=== PATIENT | female | born 1970 | race Caucasian/White ===

== ENCOUNTER → 2018-01-02 | Outpatient (CLI) | payer MEDICARE, MEDICAID ==
[~2018-01-02] MED LIST: CLEOCIN PH600 MG/50 IV; COREG 6.256.25 MG/TA PO; DURAMORPH1 MG/ML IV; GLUCOPHAGE1000 MG PO; LANTUS100 U/ML SC; LASIX 40MG TABL40 MG PO; LOVENOX 4040 MG/0.4 SQ; NORCO 325 MG-7.1 TAB PO; NOVLOG SC; ZESTRIL 10MG10 MG PO
== END ==
LOC: MC.RAD 11:24
DX: Z12.31 Encounter for screening mammogram for malignant neoplasm of breast (principal)

== ENCOUNTER 2019-03-31 12:52 | Inpatient (IN) | payer MEDICARE, MEDICAID ==
[~2019-03-31] VITALS: Ht 172.7 cm; Wt 92.8 kg
[~2019-03-31 12:52] MED LIST changes: +COREG 3.123.125 MG/T PO; -COREG 6.256.25 MG/TA PO
[2019-03-31 14:33] VITALS: BP 108/67; PULSE 88; TEMP 97.9
[2019-03-31] MEDS ORDERED: NEURONTIN600 MG/TAB PO (14:38)
[2019-03-31] MEDS ORDERED: XIGDUO5/1000 PO (14:38)
[2019-03-31] MEDS ORDERED: PRAVACHOL 40MG40 MG PO (14:39)
[2019-03-31] MEDS ORDERED: ZOLOFT 100MG100 MG PO (14:39)
[2019-03-31] MEDS ORDERED: GLUCOTROL10 MG PO (14:40)
[2019-03-31] MEDS ORDERED: ASPIRIN 81M81 MG/TA2 PO (14:40)
[2019-03-31] MEDS ORDERED: TRULICITY1.5 MG/0.5 SQ (14:41)
[2019-03-31] MEDS ORDERED: ZANTAC 150MG T150 MG PO (14:42)
[2019-03-31] MEDS ORDERED: TYLENOL PM EXTR1 TA1 PO (14:42)
--- NOTE | 2019-03-31 16:17 | NUR ---
Vancomycin Initial Dosing Pharmacy Note Ordering provider: Carter Landeros MD Indication/duration: Right foot ulcer w/cellulits, sepsis, s/p septic shock 10d Relevant comorbidities: LABS: SCR 0.6./CRCL~110/88KG Recommendation: 1.5GM Loading dose: 1.5 grams Maintenance dose: 1.5 grams every 12 hours Trough goal: POSSIBLE OSTEO 15-20
--- NOTE | 2019-03-31 19:58 | NUR ---
Sitting up in bed. Talkative and tearful. Patient rates pain in right foot 2/0 and describes the pain as a nerve pain sensation. 2+ edema noted to right lower extremity. Dressing to right foot CDI. IV site in left forearm infiltrated. Removed IV at this time with catheter intact. IV in right forearm patent with antibiotics infusing at this time. Patient denies further needs at this time.
[2019-03-31 20:05] VITALS: BP 115/66; PULSE 100; TEMP 98.7
--- NOTE | 2019-03-31 20:05 | NUR ---
Patients admission paperwork has been completed. She had all her tests that were ordered completed. Ortho has seen patient, no orders for surgery or anything yet. Patient is NPO after midnight and is aware of this. Dressing to foot has been changed twice since admission. She had a large blister to the bottom of her foot, that is open and draining. She has a 2 inch black spot to the top her foot that is red, draining and the skin is pushed back. There are 3 small black spots to the right side of her right foot. Her right pinky toe is black and draining brown drainage, wound culture sent as ordered. Dressing is C/D/I at this time. Denies pain to her right foot. She has dime sized purple blister/spot to her right inman. She has reddness from her right mid-shing to her foot. No other changes at this time. Her home medications are being sent home with her friend. Call light within reach.
--- NOTE | 2019-03-31 23:10 | NUR ---
Rechecked blood glucose. Accu check is 289 at this time. Contacted Ms. Smith, hospitalist, and we will recheck blood sugar level in two hours. Patient updated.
--- NOTE | 2019-04-01 00:17 | NUR ---
Lying in bed with eyes closed. Opens eyes when enter room. Patient takes one last sip of water as she is aware that she is to be NPO starting at this time. Water removed. Patient denies further needs at this time.
[2019-04-01 01:00] VITALS: BP 103/58; PULSE 98; TEMP 99.6
--- NOTE | 2019-04-01 01:04 | NUR ---
Accu check 268. Ms. Smith informed. Will administer Novolog 8 units SQ at this time per Ms. Smith order.
--- NOTE | 2019-04-01 03:50 | NUR ---
Blood glucose 161, administered Novolog 4 units per SS in left upper arm. Assisted patient up to bedside commode to urinate. Patient urinates clear yellow urine without difficulty. Assisted patient back into the bed. Patient remains NPO. Provided mouth swabs per patient request. Patient denies further needs at this time.
[2019-04-01 04:05] VITALS: BP 115/63; PULSE 97; TEMP 99.4
[2019-04-01 06:04] LABS: MEAN CELL VOLUME 86 fl (80.0-100.0); MEAN CORPUSCULAR HGB CONC 31 g/dl (33.0-37.0); MEAN PLATELET VOLUME 8.5 fl (7.4-10.4); PLATELET COUNT 401 K/mm3 (130-400); RED BLOOD COUNT 3.17 M/mm3 (4.10-5.30); REDCELL DISTRIBUTION WIDTH-CV 15.1 % (11.5-14.5)
[2019-04-01 06:12] LABS: HEMATOCRIT 27.1 % (37.0-47.0); HEMOGLOBIN 8.5 g/dl (12.5-16.0); MEAN CORPUSCULAR HEMOGLOBIN 27 pg (27.0-31.0)
[2019-04-01 06:13] LABS: INR 1.2 (0.8-3.0); PROTHROMBIN TIME 14.2 SECONDS (9.7-12.8)
[2019-04-01 06:16] LABS: ALBUMIN 2.5 gm/dL (3.5-5.0); BILIRUBIN,TOTAL 0.4 mg/dL (0.0-1.0); CALCIUM 8.2 mg/dL (8.4-10.2); CREATININE, serum 0.85 (0.52-1.25); POTASSIUM 3.8 mmol/L (3.4-5.0); TOTAL PROTEIN 6.3 gm/dL (6.4-8.2)
--- NOTE | 2019-04-01 06:36 | NUR ---
Lab called with critical WBC va;ue of 23.3. Notified REDDY Wallace, of results. He explains that he will be in to assess patient.
--- NOTE | 2019-04-01 07:00 | NUR ---
Bedside shift report received from JEAN PIERRE Serrato. PT in bed resting, sleeping upon entry, denies needs will conitnue to monitor.
[2019-04-01 08:31] VITALS: BP 113/62; PULSE 94; TEMP 98.6
[2019-04-01 09:43] LABS: BAND 23 % (0-10); EOSINOPHIL 2 % (0-4); LYMPHOCYTE 7 % (20.0-51.0); METAMYELOCYTE 1 % (0-0); MYELOCYTE 1 % (0-0); NEUTROPHILS 63 % (42.0-75.2); PLATELET ESTIMATE NORMAL (NORMAL)
--- NOTE | 2019-04-01 10:00 | NUR ---
Assessment charted. Pt has profound numbness in RLE especially foot but tender on calf on palpation. Removed dressing with Dr. Layne to RLE, see assessment for areas. Pt has 3+ edema to RLE, none to LLE. INT to RFA. Resting quietly, denies pain. Will continue to monitor.
[2019-04-01 12:46] VITALS: BP 91/55; PULSE 88; TEMP 98.1
--- NOTE | 2019-04-01 14:53 | NUR ---
SW met with the patient to discuss discharge plan. The patient lives alone in an apartment building in [place]. She states that her brother, Luis F Hollis (ph#[phone]), lives in [place] but that she has not spoke to his in almost three years. She reports independence with ADLs and does not have any DME. The patient's PCP is Dr. Kimber Hermosillo and she receives her medications at [facility]. She reports no difficulties obtaining her meds. The patient does not have advanced directives in EMR, but she states that she does have them completed and that Dr. Hermosillo's office should have a copy. SW contacted Dr. Hermosillo's office and requested a copy. She states that her DPOA-HC is either her brother (Luis F) or a friend (Elijah Lindsay). The patient is to tentatively have a BKA tomorrow. SW discussed post-acute rehab for after and provided her with Medicare.gov's list of nursing homes in the [place] area. The patient reports that she would like to look over the list and see how she does with therapy after the procedure. SW to continue to follow to ensure a safe discharge.
--- NOTE | 2019-04-01 15:09 | NUR ---
Initial visit; Patient thanked Gambreler for looking in on her and offering God's blessings. Gambreler will follow up.
[2019-04-01 16:00] VITALS: BP 103/57; PULSE 94; TEMP 98.2
--- NOTE | 2019-04-01 16:54 | NUR ---
SW received a copy of the patient's DPOA-HC, via fax, from the patient's PCP's office. SW placed the copies in the patient's chart. The patient's DPOA-HC is her brother (Luis F) and the alternate is her friend (Elijah Lindsay).
--- NOTE | 2019-04-01 18:12 | NUR ---
Pt doing well. Resting in bed comfortably after showering with [employer] staff. anticipating surgery tomorrow, aware of NPO at midnight. Called pharmacy regarding both antibiotics at same time, per Mike pharmacist okay to run vanc and zosyn at same time. Will provide and continue to monitor.
[2019-04-01 20:00] VITALS: BP 102/63; PULSE 94; TEMP 98
--- NOTE | 2019-04-01 20:14 | NUR ---
Lying in bed in supine position with eyes open. Patient says that she will be having her procedure tomorrow. Dressing to right foot CDI. Right lower extremity with 1+ edema and redness. Patient denies pain or further needs at this time.
[2019-04-02] VITALS (288 sets, daily range): BP systolic 92–122; BP diastolic 53–91; PULSE 20–95; TEMP 83–98.1; O2SAT 90–100
--- NOTE | 2019-04-02 00:05 | NUR ---
Ambulates to the bathroom with assist of one. Gait slow and steady. Attempts to have bowel movement but unsuccessful. Voids without difficulty. Returns to bed. SCD reapplied to left leg. Explained to the patient that she is NPO at this time. Patient verbalizes understanding and denies further needs.
--- NOTE | 2019-04-02 05:00 | NUR ---
IV in right inner forearm leaking when flushed. Discontinued with catheter intact. Site covered with cotton swab and tape. IV restarted in right outer forearm/wrist area with 20 gauge, blood return seen and site flushes without difficulty. Reinforced with tegaderm and tape. Patient tolerates procedure without difficulty.
[2019-04-02 07:39] LABS: MEAN CELL VOLUME 87 fl (80.0-100.0); MEAN CORPUSCULAR HGB CONC 31 g/dl (33.0-37.0); MEAN PLATELET VOLUME 8.9 fl (7.4-10.4); PLATELET COUNT 449 K/mm3 (130-400); RED BLOOD COUNT 3.43 M/mm3 (4.10-5.30); REDCELL DISTRIBUTION WIDTH-CV 15.5 % (11.5-14.5)
[2019-04-02 07:44] LABS: HEMATOCRIT 29.9 % (37.0-47.0); HEMOGLOBIN 9.2 g/dl (12.5-16.0); MEAN CORPUSCULAR HEMOGLOBIN 27 pg (27.0-31.0)
[2019-04-02 07:52] LABS: CREATININE, serum 1.67 (0.52-1.25); POTASSIUM 4.3 mmol/L (3.4-5.0)
[2019-04-02 08:51] LABS: BAND 20 % (0-10); EOSINOPHIL 1 % (0-4); LYMPHOCYTE 7 % (20.0-51.0); METAMYELOCYTE 3 % (0-0); NEUTROPHILS 65 % (42.0-75.2); PLATELET ESTIMATE INCREASED (NORMAL)
--- NOTE | 2019-04-02 13:15 | NUR ---
PATIENT GOING DOWNT TO OR. CONSENT ON CHART.
--- NOTE | 2019-04-02 14:00 | NUR ---
PATIENT GOING TO ICU POST OP
--- NOTE | 2019-04-02 14:55 | NUR ---
Patient arrives to ICU 4 via bed with RNx2 and CLINICAL EDUCATION CONSULTANT at bedside. Intubated from surgical procedure of BKA to Right leg, unable to extubate after surgery. Minimal bedside report recieved, will review chart. Patient not responsive to verbal cues or pain at this time. RTx2 at bedside with vent and securing tube. Surgical dressing with knee immobilizer in place, CDI. Surgical drain in place. 1500 : Amy BLAKELY notified of patient's arrival, states Dr. Layne on his way. Dr. Layne in to see patient at this time and orders recieved.
[2019-04-02 15:28] LABS: ARTERIAL BLD GAS O2 SATURATION 89.8 % (92-100); ARTERIAL BLOOD GAS BASE EXCESS -11.6 (-2-2); ARTERIAL BLOOD GAS HCO3 14.1 meq/L (22-26); ARTERIAL BLOOD GAS PCO2 30.6 mmHg (35-45); ARTERIAL BLOOD GAS PO2 61.9 mmHg (80-100); ARTERIAL BLOOD GAS pH 7.28 (7.35-7.45)
--- NOTE | 2019-04-02 15:38 | NUR ---
AIVS at bedside for PICC placement. Patient more alert, opens eyes when name called and nods "yes/no" appropriately to questions. Explained what happened during surgical procedure and nods head yes when asked if she understands.
--- NOTE | 2019-04-02 16:06 | NUR ---
1559 : This nurse calls to surgical floor to get report/history on patient. RN will call back. 1606 : Anila RN from surgical floor returns call. Report/history recieved.
[2019-04-02 16:54] LABS: ARTERIAL BLD GAS O2 SATURATION 92.5 % (92-100); ARTERIAL BLD GAS TCO2 CT 15.7; ARTERIAL BLOOD GAS BASE EXCESS -11.3 (-2-2); ARTERIAL BLOOD GAS HCO3 14.7 meq/L (22-26); ARTERIAL BLOOD GAS PCO2 33.5 mmHg (35-45); ARTERIAL BLOOD GAS PO2 70.7 mmHg (80-100); ARTERIAL BLOOD GAS pH 7.26 (7.35-7.45)
--- NOTE | 2019-04-02 17:24 | NUR ---
Patient's brother/DPOA (Luis F Hollis) returns call to this RN for updates and status check. Reviewed events of the day and patient status at this time. States will call in the morning to check in, and that nursing staff should call with any concerns/issues during night.
[2019-04-02 18:51] LABS: ANION GAP 13 mmol/L (7-16); BLOOD UREA NITROGEN 34 mg/dL (7-17); CALCIUM 7.9 mg/dL (8.4-10.2); CARBON DIOXIDE 16 mmol/L (22-30); CHLORIDE 109 mmol/L (98-107); GLUCOSE 276 mg/dL (74-106); SODIUM 137 mmol/L (137-145)
--- NOTE | 2019-04-02 18:54 | NUR ---
LAB CALLED WITH CRITICAL VANC TROUGH OF 33.25. CALLED AND SPOKE WITH DEQUAN IN PHARMACY WILL HOLD TONIGHTS DOSE AND AM DOSE. WILL DRAW A RANDOM VANC LEVEL AND REDOSE.
[2019-04-02 19:04] LABS: TROPONIN-I < 0.012 ng/mL (0.000-0.035)
--- NOTE | 2019-04-02 19:15 | NUR ---
Bedside report given to Ion GREENFIELD. Medications verified, lines verified.
--- NOTE | 2019-04-02 19:40 | NUR ---
Patient assessment completed and charted at this time. Patient remains intubated, no family present for education.
[2019-04-02 21:47] LABS: ARTERIAL BLD GAS O2 SATURATION 97.9 % (92-100); ARTERIAL BLD GAS TCO2 CT 14.7; ARTERIAL BLOOD GAS BASE EXCESS -10.4 (-2-2); ARTERIAL BLOOD GAS HCO3 13.9 meq/L (22-26); ARTERIAL BLOOD GAS PO2 106.7 mmHg (80-100); ARTERIAL BLOOD GAS pH 7.35 (7.35-7.45)
[2019-04-03] VITALS (629 sets, daily range): BP systolic 89–98; BP diastolic 53–67; PULSE 62–90; TEMP 97.5–98.6; O2SAT 93–100
[2019-04-03 05:04] LABS: ARTERIAL BLD GAS O2 SATURATION 97.7 % (92-100); ARTERIAL BLD GAS TCO2 CT 18.2; ARTERIAL BLOOD GAS HCO3 17.4 meq/L (22-26); ARTERIAL BLOOD GAS PCO2 27.3 mmHg (35-45); ARTERIAL BLOOD GAS PO2 97.2 mmHg (80-100); ARTERIAL BLOOD GAS pH 7.42 (7.35-7.45)
[2019-04-03 06:21] LABS: MEAN CELL VOLUME 84 fl (80.0-100.0); MEAN CORPUSCULAR HGB CONC 32 g/dl (33.0-37.0); MEAN PLATELET VOLUME 9.1 fl (7.4-10.4); PLATELET COUNT 497 K/mm3 (130-400); RED BLOOD COUNT 3.41 M/mm3 (4.10-5.30); REDCELL DISTRIBUTION WIDTH-CV 15.3 % (11.5-14.5)
[2019-04-03 06:31] LABS: HEMATOCRIT 28.7 % (37.0-47.0); HEMOGLOBIN 9.1 g/dl (12.5-16.0); MEAN CORPUSCULAR HEMOGLOBIN 27 pg (27.0-31.0)
[2019-04-03 06:37] LABS: ALANINE AMINOTRANSFERASE 47 U/L (9-52); ALBUMIN 2.4 gm/dL (3.5-5.0); ALKALINE PHOSPHATASE 254 U/L (50-136); ANION GAP 11 mmol/L (7-16); AST,SGOT 37 U/L (15-37); BILIRUBIN,TOTAL 0.2 mg/dL (0.0-1.0); BLOOD UREA NITROGEN 38 mg/dL (7-17); CALCIUM 7.7 mg/dL (8.4-10.2); CARBON DIOXIDE 17 mmol/L (22-30); CHLORIDE 110 mmol/L (98-107); CREATININE, serum 1.54 (0.52-1.25); GLUCOSE 209 mg/dL (74-106); PHOSPHOROUS 5.8 mg/dL (2.5-4.5); POTASSIUM 4.2 mmol/L (3.4-5.0); SODIUM 138 mmol/L (137-145); TOTAL PROTEIN 5.6 gm/dL (6.4-8.2)
[2019-04-03 06:57] LABS: TROPONIN-I < 0.012 ng/mL (0.000-0.035)
--- NOTE | 2019-04-03 07:00 | NUR ---
PT IS NOT ON WEANING TRIAL DUE TO VENT SETTINGS. PT IS ON DOCUMENTED VENT SETTINGS SCOOTER WELL WITH NO DISTRESS NOTED AT THIS TIME
--- NOTE | 2019-04-03 07:10 | NUR ---
Bedside report recieved from Ion GREENFIELD. Medications verified. Patient awakens easily and denies needs or pain at this time.
[2019-04-03 08:25] LABS: BAND 24 % (0-10); LYMPHOCYTE 9 % (20.0-51.0); METAMYELOCYTE 4 % (0-0); MYELOCYTE 2 % (0-0); NEUTROPHILS 59 % (42.0-75.2)
[2019-04-03 08:26] LABS: PLATELET ESTIMATE INCREASED (NORMAL)
--- NOTE | 2019-04-03 13:22 | NUR ---
Creative Services Director attended clinical rounds with the team. Patient still intubated. SW to continue to follow.
--- NOTE | 2019-04-03 16:15 | NUR ---
Since increasing patient's Fentanyl at 1230, patient has had increased drowsiness. Awakens easily when name called and answers all questions appropriately as able. Propofol drecreased at this time, will monitor.
--- NOTE | 2019-04-03 19:18 | NUR ---
Bedside report given to Ion GREENFIELD. Medications verified. Denies needs
--- NOTE | 2019-04-03 20:55 | NUR ---
Patient requested pain medication increase due to her leg.
[2019-04-04] VITALS (821 sets, daily range): BP systolic 86–169; BP diastolic 49–88; PULSE 80–97; TEMP 97.5–98.7; O2SAT 72–100
--- NOTE | 2019-04-04 03:36 | NUR ---
PEEP DECREASED FROM [address] AREVALO ORDER. WILL CONTINUE TO DECREASE UNTIL PEEP OF 5 PT TOLERATES.
[2019-04-04 06:02] LABS: MEAN CELL VOLUME 86 fl (80.0-100.0); MEAN CORPUSCULAR HGB CONC 31 g/dl (33.0-37.0); PLATELET COUNT 491 K/mm3 (130-400); REDCELL DISTRIBUTION WIDTH-CV 15.3 % (11.5-14.5)
[2019-04-04 06:06] LABS: ARTERIAL BLD GAS O2 SATURATION 96.3 % (92-100); ARTERIAL BLD GAS TCO2 CT 17.6; ARTERIAL BLOOD GAS HCO3 16.8 meq/L (22-26); ARTERIAL BLOOD GAS PCO2 24.6 mmHg (35-45); ARTERIAL BLOOD GAS PO2 83.9 mmHg (80-100); ARTERIAL BLOOD GAS pH 7.45 (7.35-7.45)
[2019-04-04 06:15] LABS: ALBUMIN 2.4 gm/dL (3.5-5.0); BILIRUBIN,TOTAL 0.2 mg/dL (0.0-1.0); CALCIUM 7.7 mg/dL (8.4-10.2); CREATININE, serum 1.86 (0.52-1.25); PHOSPHOROUS 4.2 mg/dL (2.5-4.5); POTASSIUM 3.8 mmol/L (3.4-5.0); TOTAL PROTEIN 5.9 gm/dL (6.4-8.2)
[2019-04-04 06:29] LABS: HEMATOCRIT 27.4 % (37.0-47.0); HEMOGLOBIN 8.6 g/dl (12.5-16.0); MEAN CORPUSCULAR HEMOGLOBIN 27 pg (27.0-31.0)
--- NOTE | 2019-04-04 07:30 | NUR ---
Report received from JEAN PIERRE Lemon.
--- NOTE | 2019-04-04 07:55 | NUR ---
ORTHOPEDIC SURGERY AT BEDSIDE TO SEE PT. UPDATED ON PT STATUS, LABS, VITAL SIGNS. HEMAVAC DRAIN DC'D BY SURGERY. DARON BANDAGE AND IMMOBILIZER REMAINS ON RIGHT LEG.
[2019-04-04 08:35] LABS: BAND 5 % (0-10); EOSINOPHIL 3 % (0-4); LYMPHOCYTE 8 % (20.0-51.0); MYELOCYTE 4 % (0-0); NEUTROPHILS 76 % (42.0-75.2)
[2019-04-04 08:38] LABS: HYPOCHROMIA 2+; PLATELET ESTIMATE INCREASED (NORMAL)
[2019-04-04 08:39] LABS: ANISOCYTOSIS 1+
--- NOTE | 2019-04-04 09:00 | NUR ---
DR ALTAMIRANO AT BEDSIDE. VENTILATOR SETTINGS CHANGED BACK TO ASSIST CONTROL. PROPOFOL GTT INCREASED FOR SEDATION. RT NOTIFIED OF VENT CHANGES AND IS NOW AT BEDSIDE. PT NOW RESTING, EASILY AROUSABLE. NODS HEAD YES/NO TO QUESTIONS.
--- NOTE | 2019-04-04 10:26 | NUR ---
VERBAL ORDERS FROM DR ALTAMIRANO TO START LEVOPHED GTT. LR BOLUS STILL INFUSING AND TO FOLLOW WITH ALBUMEN. HR SR 80S, SBP 80-LOW 90S.
--- NOTE | 2019-04-04 12:00 | NUR ---
PHYSICAL THERAPY AT BEDSIDE.
[2019-04-04 15:54] LABS: BUDDING YEAST Present /hpf; MUCOUS Present /lpf; PH 5 (5-8); SQUAMOUS EPITHELIAL 0-2 /hpf; URINE APPEARANCE Cloudy; URINE BACTERIA Rare /hpf; URINE BILIRUBIN Negative (NEGATIVE); URINE BLOOD 2+ (NEGATIVE); URINE COLOR Yellow; URINE GLUCOSE 3+ (NEGATIVE); URINE KETONE Negative (NEGATIVE); URINE LEUKOCYTE ESTERASE 2+ (NEGATIVE); URINE NITRATE Negative (NEGATIVE); URINE PROTEIN(semi-quant) 1+ (NEGATIVE); URINE RBC >50 /hpf; URINE UROBILINOGEN Negative (NEGATIVE); URINE WBC >50 /hpf
[2019-04-04 15:57] LABS: COLLECTION METHOD CATHETER
--- NOTE | 2019-04-04 17:07 | NUR ---
Pt asynchronous with ventilator. Increasing sedation and pt is easily arousable. Nods head yes/no to questions, follows commands. Remains on propofol and fentanyl gtts.
[2019-04-04 17:08] LABS: ARTERIAL BLD GAS O2 SATURATION 96.5 % (92-100); ARTERIAL BLD GAS TCO2 CT 21.7; ARTERIAL BLOOD GAS BASE EXCESS -4.5 (-2-2); ARTERIAL BLOOD GAS HCO3 20.6 meq/L (22-26); ARTERIAL BLOOD GAS PCO2 37.6 mmHg (35-45); ARTERIAL BLOOD GAS pH 7.36 (7.35-7.45)
--- NOTE | 2019-04-04 17:28 | NUR ---
Pt still drowsy, easily arousable. Pt breaths stacking on ventilator, not sychronous with ventilator. Pt not in distress. Vital signs remain stable. Dr penaloza notified and orders received. RT notified of ABG. ABG drawn and tidal volume increased to [address] Penaloza's orders. CxR done at bedside to check ETT placment. Lung sounds rhonchi, RT able to suction moderate amount white,thick secretions from ETT. Lung sounds rechecked and sound clear, diminished in bases. Lab notified for BMP lab draw now.
[2019-04-04 18:04] LABS: CALCIUM 7.6 mg/dL (8.4-10.2); CREATININE, serum 1.7 (0.52-1.25); POTASSIUM 4.2 mmol/L (3.4-5.0)
--- NOTE | 2019-04-04 19:37 | NUR ---
Report given to JEAN PIERRE Quinn.
[2019-04-05] VITALS (566 sets, daily range): BP systolic 91–133; BP diastolic 50–78; PULSE 81–104; TEMP 97.4–100.1; O2SAT 81–100
--- NOTE | 2019-04-05 04:13 | NUR ---
LEVAPHED HAS BEEN STOPPED, B/Ps HAVE BEEN STAYING AT 90/50. EILL CONTINUE TO MONITOR
[2019-04-05 05:37] LABS: ARTERIAL BLD GAS O2 SATURATION 94.1 % (92-100); ARTERIAL BLD GAS TCO2 CT 20.6; ARTERIAL BLOOD GAS BASE EXCESS -5.2 (-2-2); ARTERIAL BLOOD GAS HCO3 19.5 meq/L (22-26); ARTERIAL BLOOD GAS PCO2 34.9 mmHg (35-45); ARTERIAL BLOOD GAS PO2 71.3 mmHg (80-100); ARTERIAL BLOOD GAS pH 7.37 (7.35-7.45)
--- NOTE | 2019-04-05 06:11 | NUR ---
PATIENT HAS BEEN ON SEDATION VACATION SINCE 439, PATIENT IS AWAKE AND ALERT, CALM, BREATHING WITH VENT, STAFF WILL CONTINUE OBSERVATION
[2019-04-05 06:15] LABS: ALBUMIN 2.5 gm/dL (3.5-5.0); BILIRUBIN,TOTAL 0.1 mg/dL (0.0-1.0); CALCIUM 7.7 mg/dL (8.4-10.2); CREATININE, serum 1.82 (0.52-1.25); MAGNESIUM 2.1 mg/dL (1.6-2.3); PHOSPHOROUS 3.9 mg/dL (2.5-4.5); POTASSIUM 4.2 mmol/L (3.4-5.0); TOTAL PROTEIN 5.7 gm/dL (6.4-8.2)
[2019-04-05 07:16] LABS: MEAN CELL VOLUME 89 fl (80.0-100.0); MEAN CORPUSCULAR HGB CONC 30 g/dl (33.0-37.0); MEAN PLATELET VOLUME 8.8 fl (7.4-10.4); PLATELET COUNT 477 K/mm3 (130-400); RED BLOOD COUNT 2.91 M/mm3 (4.10-5.30); REDCELL DISTRIBUTION WIDTH-CV 15.6 % (11.5-14.5)
[2019-04-05 07:18] LABS: HEMATOCRIT 25.9 % (37.0-47.0); HEMOGLOBIN 7.7 g/dl (12.5-16.0); MEAN CORPUSCULAR HEMOGLOBIN 26 pg (27.0-31.0)
--- NOTE | 2019-04-05 08:14 | NUR ---
VANC LEVEL 17.7, CHANGE DOSING 1.25GM DAILY, SCR INCREASED TO 1.8, (ZOSYN +VANCO COMBO ???) WILL REDRAW TROUGH IN COUPLE DAYS IF STILL ON VANCO THERAPY
--- NOTE | 2019-04-05 08:31 | NUR ---
MD Rosalind in to see pt at this time
--- NOTE | 2019-04-05 09:05 | NUR ---
MD Rosalind and RT Kimber at bedside - pt awake and alert - plan to extubate to VapoTherm. Sedation discontinued at this time. TubeFeeds discontinued & OG tube to low intermittant suction. Levophed remains off on standby. RASS=0.
[2019-04-05 09:27] LABS: ANISOCYTOSIS 1+; BAND 15 % (0-10); EOSINOPHIL 2 % (0-4); HYPOCHROMIA 3+; LYMPHOCYTE 5 % (20.0-51.0); METAMYELOCYTE 2 % (0-0); MYELOCYTE 3 % (0-0); NEUTROPHILS 65 % (42.0-75.2); PLATELET ESTIMATE INCREASED (NORMAL)
[2019-04-05 10:20] LABS: ARTERIAL BLD GAS O2 SATURATION 93.5 % (92-100); ARTERIAL BLD GAS TCO2 CT 19.3; ARTERIAL BLOOD GAS BASE EXCESS -6.1 (-2-2); ARTERIAL BLOOD GAS HCO3 18.3 meq/L (22-26); ARTERIAL BLOOD GAS PCO2 31.8 mmHg (35-45); ARTERIAL BLOOD GAS PO2 69.9 mmHg (80-100); ARTERIAL BLOOD GAS pH 7.38 (7.35-7.45)
--- NOTE | 2019-04-05 10:25 | NUR ---
ABG results reported to MD Chandler Boyer RT here for extubation
--- NOTE | 2019-04-05 10:45 | NUR ---
Pt extubated to HighFlow Nasal Cannula / VapoTherm. OG tube discontinued. Pt tolerated well. VSS. Pt AAOx4. Pt denies shortness of breath - no accessory muscles observed during respiration - respirations equal and unlabored. Pt on mobile phone texting family and friends. No concerns at this time
--- NOTE | 2019-04-05 10:45 | NUR ---
Patient extubated without incident. No stridor present. Patient placed on high flow oxygen at 40 lpm and 50%. She is tolerating well at this time.
--- NOTE | 2019-04-05 11:36 | NUR ---
Bedside swallow evaluation performed. Pt tolerating clear liquids without difficulty/coughing/choking. Diet advanced
[2019-04-05 15:32] LABS: CALCIUM 8.2 mg/dL (8.4-10.2); CREATININE, serum 1.87 (0.52-1.25); POTASSIUM 4.1 mmol/L (3.4-5.0)
[2019-04-05 17:13] LABS: PHOSPHOROUS 3.1 mg/dL (2.5-4.5)
--- NOTE | 2019-04-05 21:00 | NUR ---
PT assessed, vitals stable, states she is having some phantom pain on "the top of where my right foot used to be." Pain medication administered, will continue to monitor.
[2019-04-06] VITALS (427 sets, daily range): BP systolic 94–129; BP diastolic 53–85; PULSE 70–96; TEMP 97.8–98.8; O2SAT 76–100
[2019-04-06 05:39] LABS: ARTERIAL BLD GAS TCO2 CT 26.1; ARTERIAL BLOOD GAS BASE EXCESS 0.3 (-2-2); ARTERIAL BLOOD GAS HCO3 24.9 meq/L (22-26); ARTERIAL BLOOD GAS PCO2 39.2 mmHg (35-45); ARTERIAL BLOOD GAS PO2 92.6 mmHg (80-100); ARTERIAL BLOOD GAS pH 7.42 (7.35-7.45)
[2019-04-06 06:09] LABS: MEAN CELL VOLUME 89 fl (80.0-100.0); MEAN CORPUSCULAR HGB CONC 30 g/dl (33.0-37.0); MEAN PLATELET VOLUME 8.8 fl (7.4-10.4); PLATELET COUNT 423 K/mm3 (130-400); RED BLOOD COUNT 2.67 M/mm3 (4.10-5.30); REDCELL DISTRIBUTION WIDTH-CV 15.6 % (11.5-14.5)
[2019-04-06 06:27] LABS: ALBUMIN 3.1 gm/dL (3.5-5.0); BILIRUBIN,TOTAL 0.2 mg/dL (0.0-1.0); CALCIUM 8.4 mg/dL (8.4-10.2); CREATININE, serum 2.12 (0.52-1.25); PHOSPHOROUS 3.8 mg/dL (2.5-4.5); POTASSIUM 4.1 mmol/L (3.4-5.0); TOTAL PROTEIN 6.2 gm/dL (6.4-8.2)
[2019-04-06 06:34] LABS: PRE ALBUMIN 11.8 mg/dL (17.6-36.0)
[2019-04-06 06:41] LABS: HEMATOCRIT 23.8 % (37.0-47.0); HEMOGLOBIN 7.2 g/dl (12.5-16.0); MEAN CORPUSCULAR HEMOGLOBIN 27 pg (27.0-31.0)
--- NOTE | 2019-04-06 07:00 | NUR ---
Report given to JEAN PIERRE Velazquez.
--- NOTE | 2019-04-06 08:18 | NUR ---
Pt AAOx4, pt refusing to get out of bed to chair - "I want to wait until Physical Therapy comes". Pt tolerating nasal cannula at this time with no SOB, respirations equal and unlabored
[2019-04-06 08:28] LABS: BAND 11 % (0-10); EOSINOPHIL 3 % (0-4); LYMPHOCYTE 19 % (20.0-51.0); METAMYELOCYTE 1 % (0-0); MYELOCYTE 2 % (0-0); NEUTROPHILS 62 % (42.0-75.2); PLATELET ESTIMATE NORMAL (NORMAL)
--- NOTE | 2019-04-06 09:15 | NUR ---
Pt out of bed to chair with 2 assist with use of walker and gait belt
--- NOTE | 2019-04-06 15:00 | NUR ---
Pt transfered to wheel chair by PT in preparation to transfer up to surgical floor
--- NOTE | 2019-04-06 15:20 | NUR ---
Pt transported to surgical floor, transfered with 2-assist from wheel chair to bed requiring 2 attempts (pt's left leg gave out after standing and required to sit back in wheel chair for a moment - pt did become tearful) JEAN PIERRE Albarran at bedside to recieve pt. No questions or concerns from pt regional forester.
--- NOTE | 2019-04-06 15:30 | NUR ---
PATIENT ARRIVED TO ROOM 323 VIA WHEELCHAIR FROM ICU. PATIENT ORIENTED TO ROOM. PATIENT IS A&OX4. VSS. PICC LINE TO RUE. RIGHT STUMP DRESSED WITH AN DARON WRAP DRESSING AND BRACE IN PLACE. RIGHT STUMP DRESSING IS CD&I. CARIAS CATHETER DRAINING BLOOD-TINGED URINE TO CARIAS BAG. GLORIA JONES AND SCD TO LLE. CALL LIGHT WITHIN REACH. PATIENT DENIES ANY NEEDS AT THIS TIME.
--- NOTE | 2019-04-06 16:04 | NUR ---
[employer] Raft[employer] Guide attended clinical rounds with the team. Patient to move up to Medical Floor.
--- NOTE | 2019-04-06 19:19 | NUR ---
REPORT GIVEN TO JEAN PIERRE PILLAI.
[2019-04-06 21:12] LABS: HEMATOCRIT 27.7 % (37.0-47.0); HEMOGLOBIN 8.2 g/dl (12.5-16.0)
[2019-04-07] VITALS: BP 105/58; PULSE 80; TEMP 98.2
--- NOTE | 2019-04-07 02:10 | NUR ---
PATIENT DOING WELL TONIGHT. PRN PAIN MEDICATION GIVEN FOR MODERATE PAIN/SPASMS DESCRIBED PHANTOM PAIN. ALERT AND ORIENTED. PATIENT DID BECOME EMOTIONAL WHILE TALKING WITH RT. DISCUSSED WITH PATIENT THAT IT IS A PROCESS THAT WILL TAKE TIME TO COME TO TERMS WITH. BKA WITH DARON WRAP AND BRACE CDI. CARIAS DRAINING BLOOD TINGED URINE, SOME CLOTS PASSED, IS CURRENTLY DRAINING CLEAR YELLOW URINE. 2 L O2 VIA NC. WBG ELEVATED, NOVOLOG GIVEN. NO FURTHER NEEDS AT THIS TIME. WILL CONTINUE TO MONITOR.
[2019-04-07 04:00] VITALS: BP 104/60; PULSE 79; TEMP 97.9
[2019-04-07 08:18] VITALS: BP 114/68; PULSE 82; TEMP 98
[2019-04-07 09:42] LABS: MEAN CELL VOLUME 89 fl (80.0-100.0); MEAN CORPUSCULAR HGB CONC 30 g/dl (33.0-37.0); MEAN PLATELET VOLUME 8.6 fl (7.4-10.4); PLATELET COUNT 468 K/mm3 (130-400); RED BLOOD COUNT 3.05 M/mm3 (4.10-5.30); REDCELL DISTRIBUTION WIDTH-CV 15.6 % (11.5-14.5)
[2019-04-07 09:43] LABS: HEMATOCRIT 27.2 % (37.0-47.0); HEMOGLOBIN 8.2 g/dl (12.5-16.0); MEAN CORPUSCULAR HEMOGLOBIN 27 pg (27.0-31.0)
[2019-04-07 10:12] LABS: CALCIUM 8.5 mg/dL (8.4-10.2); CREATININE, serum 1.85 (0.52-1.25); POTASSIUM 4.8 mmol/L (3.4-5.0)
[2019-04-07 11:16] LABS: BAND 10 % (0-10); EOSINOPHIL 3 % (0-4); LYMPHOCYTE 14 % (20.0-51.0); METAMYELOCYTE 3 % (0-0); MYELOCYTE 1 % (0-0); NEUTROPHILS 69 % (42.0-75.2); PLATELET ESTIMATE INCREASED (NORMAL)
[2019-04-07 12:27] VITALS: BP 131/83; PULSE 83; TEMP 97.6
--- NOTE | 2019-04-07 15:45 | NUR ---
PICC intact right upper arm. With sterile technique right upper arm PICC dressing change done with insertion site cleansed with ChloraPrep 1, chlorhexidine impregnated disc applied, skin prep, StatLock, and Tegaderm applied. No concerns voiced. No signs or symptoms of IV complications noted. Arm wrapped with Vik to protect catheter.
[2019-04-07 15:58] VITALS: BP 115/76; PULSE 84; TEMP 98
--- NOTE | 2019-04-07 18:30 | NUR ---
Patient sat up in the chair most the day. She has been getting up to the BSC few times with walker and help. She stated she is moving better this evening than before. Pain well controlled with pain pills. No complaints of nausea. Brace to right BKA as ordered. No other changes at this time. Call light within reach.
[2019-04-07 20:00] VITALS: BP 118/73; PULSE 80; TEMP 97.4
[2019-04-08] VITALS (7 sets, daily range): BP systolic 103–166; BP diastolic 49–69; PULSE 78–91; TEMP 97.7–98.8
--- NOTE | 2019-04-08 01:38 | NUR ---
PATIENT DOING WELL TONIGHT. PRN TYLENOL GIVEN FOR MILD PAIN. DARON WRAP TO BKA AND BRACE/IMMOBILIZER ON. PICC TO RUE PATENT AND HAS BLOOD RETURN. CARIAS STILL IN PLACE DRAINING PINK TINGED URINE WITH SEDIMENT. TEDS AND SCDS ON NON OPERATIVE EXTREMITY. CONSENT FOR BEDSIDE CYSTO SIGNED AND IN CHART. TOOK SCHEDULED MEDICATIONS WITHOUT ISSUE. NO FURTHER NEEDS AT THIS TIME. WILL CONTINUE TO MONITOR.
[2019-04-08 08:06] LABS: MEAN CELL VOLUME 91 fl (80.0-100.0); MEAN CORPUSCULAR HGB CONC 28 g/dl (33.0-37.0); MEAN PLATELET VOLUME 8.9 fl (7.4-10.4); PLATELET COUNT 505 K/mm3 (130-400); RED BLOOD COUNT 3.09 M/mm3 (4.10-5.30); REDCELL DISTRIBUTION WIDTH-CV 15.5 % (11.5-14.5)
[2019-04-08 08:18] LABS: HEMATOCRIT 28.2 % (37.0-47.0); MEAN CORPUSCULAR HEMOGLOBIN 26 pg (27.0-31.0)
[2019-04-08 08:26] LABS: CALCIUM 8.7 mg/dL (8.4-10.2); CREATININE, serum 1.68 (0.52-1.25); POTASSIUM 4.8 mmol/L (3.4-5.0)
[2019-04-08 10:25] LABS: ANISOCYTOSIS 1+; BAND 10 % (0-10); EOSINOPHIL 2 % (0-4); LYMPHOCYTE 19 % (20.0-51.0); NEUTROPHILS 67 % (42.0-75.2); PLATELET ESTIMATE INCREASED (NORMAL)
--- NOTE | 2019-04-08 18:00 | NUR ---
Patient has been doing well today. She had a hard time with transfers this morning but was better this afternoon. MOM given for constipation. Denies nausea. Odem given once today. She has been up to the wheel chair most the day. No other changes at this time. Call light within reach.
--- NOTE | 2019-04-08 23:17 | NUR ---
PATIENT DOING WELL TONIGHT. X2 ASSIST FOR PIVOT TRANSFER TO [facility] WITH USE OF WALKER. PRN NORCO GIVEN AFTER TRANSFER FOR MODERATE PAIN. VOIDED CLEAR YELLOW URINE. WBG ELEVATED AT 173, 2 UNITS NOVOLOG GIVEN. PICC TO RUE PATENT WITH BLOOD RETURN. TOOK SCHEDULED MEDICATION WITHOUT ISSUE. NO FURTHER NEEDS AT THIS TIME. WILL CONTINUE TO MONITOR.
[2019-04-09 00:15] VITALS: BP 119/68; PULSE 88; TEMP 98
[2019-04-09 03:39] VITALS: BP 115/71; PULSE 80; TEMP 98
--- NOTE | 2019-04-09 08:00 | NUR ---
Patient resting in bed at this time. Patient is alert and oriented, answers questions appropriately. Right leg in immobilizer brace, dressing appears CDI underneath. Leg is elevated on pillow. Patient states pain is well controlled at this time, denies further needs at this time, call light within reach.
[2019-04-09 08:10] VITALS: BP 110/61; PULSE 80; TEMP 98.2
[2019-04-09 08:39] LABS: MEAN CELL VOLUME 90 fl (80.0-100.0); MEAN CORPUSCULAR HGB CONC 30 g/dl (33.0-37.0); MEAN PLATELET VOLUME 8.8 fl (7.4-10.4); PLATELET COUNT 414 K/mm3 (130-400); RED BLOOD COUNT 2.92 M/mm3 (4.10-5.30); REDCELL DISTRIBUTION WIDTH-CV 15.6 % (11.5-14.5)
[2019-04-09 08:41] LABS: HEMATOCRIT 26.3 % (37.0-47.0); HEMOGLOBIN 7.8 g/dl (12.5-16.0); MEAN CORPUSCULAR HEMOGLOBIN 27 pg (27.0-31.0)
[2019-04-09 08:55] LABS: CALCIUM 8.4 mg/dL (8.4-10.2); CREATININE, serum 1.53 (0.52-1.25); POTASSIUM 5.4 mmol/L (3.4-5.0)
[2019-04-09 09:02] LABS: BAND 6 % (0-10); EOSINOPHIL 9 % (0-4); LYMPHOCYTE 22 % (20.0-51.0); METAMYELOCYTE 3 % (0-0); NEUTROPHILS 53 % (42.0-75.2); PLATELET ESTIMATE NORMAL (NORMAL)
--- NOTE | 2019-04-09 10:09 | NUR ---
Physical therapy is recommending post acute rehab. EDGARD presented the patient with Medicare.gov's list of IPRs and SNFs. The patient's first choice is [facility], second choice [facility], and third choice [facility]. EDGARD signed the patient choice form, form was placed in the chart. EDGARD contacted [facility] Director and faxed referrals. SW awaiting responses.
--- NOTE | 2019-04-09 10:57 | NUR ---
[facility], IPR Director reports they can accept the patient for IPR. SW informed the team and the patient.
[2019-04-09 11:36] VITALS: BP 139/74; PULSE 87; TEMP 98.2
[2019-04-09 15:40] VITALS: BP 124/65; PULSE 87; TEMP 97.2
--- NOTE | 2019-04-09 17:47 | NUR ---
Patient resting in bed eating dinner at this time. Patient remains alert, oriented, and appropriate. Patient has pivot transferred to bedside commode several times today with little assistance. Patient did complain of pain in her right leg this evening, administered PRN pain medication per order. Patient denies needs at this time, call light within reach.
--- NOTE | 2019-04-09 21:00 | NUR ---
PATIENT ASSISTED TO BSC, HAS LARGE SOFT STOOL. DOES WELL WITH TRANSFER WITH GAIT BELT/WALKER AND ONE ASSIST. IMMOBILIZER ON RIGHT LEG, BKA. BACK TO BED, TAKES HS MEDS WITHOUT PROBLEM. HAS RIGHT PICC, BOTH LUMENS FLUSH WELL WITH GOOD BLOOD RETURN.
[2019-04-09 21:06] VITALS: BP 123/70; PULSE 86; TEMP 97.7
--- NOTE | 2019-04-09 22:45 | NUR ---
NORCO 1 TAB GIVEN FOR INCISIONAL/PHANTOM PAIN TO RIGHT STUMP. APPLESAUCE GIVEN FOR SNACK. NO OTHER REQUESTS AT THIS TIME.
[2019-04-10 00:12] VITALS: BP 110/64; PULSE 84; TEMP 98.1
[2019-04-10 04:47] VITALS: BP 121/78; PULSE 84; TEMP 98.1
--- NOTE | 2019-04-10 05:00 | NUR ---
Assisted to BSC, has mod soft BM and voids. Back to bed with gait belt/walker and assist of one.
[2019-04-10 07:14] LABS: MEAN CELL VOLUME 91 fl (80.0-100.0); MEAN CORPUSCULAR HGB CONC 28 g/dl (33.0-37.0); MEAN PLATELET VOLUME 8.6 fl (7.4-10.4); PLATELET COUNT 426 K/mm3 (130-400); RED BLOOD COUNT 3.04 M/mm3 (4.10-5.30); REDCELL DISTRIBUTION WIDTH-CV 15.6 % (11.5-14.5)
[2019-04-10 07:22] LABS: CALCIUM 8.9 mg/dL (8.4-10.2); CREATININE, serum 1.53 (0.52-1.25); POTASSIUM 5.7 mmol/L (3.4-5.0)
[2019-04-10 07:41] VITALS: BP 120/65; PULSE 83; TEMP 97.9
[2019-04-10 07:43] LABS: HEMATOCRIT 27.8 % (37.0-47.0); HEMOGLOBIN 7.9 g/dl (12.5-16.0); MEAN CORPUSCULAR HEMOGLOBIN 26 pg (27.0-31.0)
--- NOTE | 2019-04-10 08:00 | NUR ---
Patient resting in bed at this time. Patient rouses easily and is alert and oriented while awake. Right leg in immobilizer, dressing beneath appears to be CDI. Patient up to bedside commode with gait belt, walker, and 1x assist to pivot transfer. Patient was continent of urine. Patient did request PRN pain medication for pain rated 5/10. Patient denies further needs at this time, call light within reach.
[2019-04-10 08:10] LABS: BAND 18 % (0-10); LYMPHOCYTE 21 % (20.0-51.0); METAMYELOCYTE 1 % (0-0); MYELOCYTE 3 % (0-0); NEUTROPHILS 54 % (42.0-75.2)
[2019-04-10 08:11] LABS: ANISOCYTOSIS 1+; HYPOCHROMIA 2+; PLATELET ESTIMATE INCREASED (NORMAL)
--- NOTE | 2019-04-10 10:44 | NUR ---
PATIENT REFUSED TREATMENT AT THIS TIME
[2019-04-10 11:08] VITALS: BP 112/76; PULSE 84; TEMP 98
[2019-04-10] MEDS ORDERED: ASPIRIN 32325 MG/TAB PO (13:03)
[2019-04-10] MEDS ORDERED: LEVEMIR100 U/ML SQ (16:46)
[2019-04-10] MEDS ORDERED: LEVAQUIN 750MG750 M1 PO (16:48)
[2019-04-10] MEDS ORDERED: MIRALAX PA17 GM/Dose PO (16:49)
[2019-04-10] MEDS ORDERED: MELATIN 3 MG-11 TAB PO (18:14)
[2019-04-10] MEDS ORDERED: NOVLOG SQ (18:16)
[2019-04-10] MEDS ORDERED: NORCO 325 MG-51 TAB PO (18:17)
[2019-04-10] MEDS ORDERED: COLACE 100100 MG/CAP PO (18:33)
[2019-04-10] MEDS ORDERED: MAALOX ADVANCE148 ML PO (18:36)
[2019-04-10] MEDS ORDERED: TYLENOL 325MG325 MG PO (18:37)
[2019-04-10] MEDS ORDERED: DULCOLAX S10 MG/SUPP RC (18:38)
[2019-04-10] MEDS ORDERED: BANOPHEN25 M1 PO (18:40)
[2019-04-10] MEDS ORDERED: PHILLIPS M400 MG/51 PO (18:42)
[2019-04-10] MEDS ORDERED: IPRATROPIUM BROM3 M1 IH ×2 (19:28→19:29)
== END 2019-04-10 14:13 | DRG 853 ==
LOC: SURG 12:52 → ICU 13:55 → SURG 04-06 16:01
PROVIDERS: Internal Medicine Critical Care Medicine; Internal Medicine Pulmonary Disease; Nurse Practitioner Family; Orthopaedic Surgery Sports Medicine; Physician Assistant; Student in an Organized Health Care Education/Training Program; ADMIT Hospitalist
PROC: 0Y6H0Z1 Detachment at Right Lower Leg, High, Open Approach (ICD-10-PCS; 2019-04-02)
PROC: 02HV33Z Insertion of Infusion Device into Superior Vena Cava, Percutaneous Approach (ICD-10-PCS; 2019-04-02)
PROC: 0BH17EZ Insertion of Endotracheal Airway into Trachea, Via Natural or Artificial Opening (ICD-10-PCS; 2019-04-02)
PROC: 5A1945Z Respiratory Ventilation, 24-96 Consecutive Hours (ICD-10-PCS; 2019-04-02)
PROC: 0Y6F0ZZ Detachment at Right Knee Region, Open Approach (ICD-10-PCS; principal; 2019-04-02 12:30)
PROC: 0TJB8ZZ Inspection of Bladder, Via Natural or Artificial Opening Endoscopic (ICD-10-PCS; 2019-04-08)
DX: A41.9 Sepsis, unspecified organism (principal); R65.21 Severe sepsis with septic shock; J96.01 Acute respiratory failure with hypoxia; K72.00 Acute and subacute hepatic failure without coma; J18.9 Pneumonia, unspecified organism; M86.8X6 Other osteomyelitis, lower leg; L03.115 Cellulitis of right lower limb; I42.9 Cardiomyopathy, unspecified; N17.9 Acute kidney failure, unspecified; E87.2 Acidosis; E11.69 Type 2 diabetes mellitus with other specified complication; F15.10 Other stimulant abuse, uncomplicated; I50.9 Heart failure, unspecified; I25.10 Atherosclerotic heart disease of native coronary artery without angina pectoris; E87.70 Fluid overload, unspecified; I11.0 Hypertensive heart disease with heart failure; E78.5 Hyperlipidemia, unspecified; M79.7 Fibromyalgia; E11.621 Type 2 diabetes mellitus with foot ulcer; D64.9 Anemia, unspecified; E87.5 Hyperkalemia; Y95 Nosocomial condition; E11.628 Type 2 diabetes mellitus with other skin complications; E11.40 Type 2 diabetes mellitus with diabetic neuropathy, unspecified; R31.0 Gross hematuria; Z87.891 Personal history of nicotine dependence; K21.9 Gastro-esophageal reflux disease without esophagitis; Z90.49 Acquired absence of other specified parts of digestive tract; Z79.4 Long term (current) use of insulin; Z79.82 Long term (current) use of aspirin; Z95.810 Presence of automatic (implantable) cardiac defibrillator
CPT/HCPCS: 99223-AI; 99232-AI; 99233-AI; 99239; A4216; A9284; C1751; J0330; J0692; J1644; J1815; J1940; J1956; J2250; J2405; J2543; J2704; J3010; J3370; J7030; J7050; J7060; J7120; P9047

== ENCOUNTER 2019-04-10 09:40 | Inpatient (IN) | payer MEDICARE, MEDICAID ==
[~2019-04-10] VITALS: Ht 172.7 cm; Wt 84.8 kg
[~2019-04-10 09:40] MED LIST changes: +ASPIRIN 81M81 MG/TA2 PO; +GLUCOTROL10 MG PO; +NEURONTIN600 MG/TAB PO; +PRAVACHOL 40MG40 MG PO; +TRULICITY1.5 MG/0.5 SQ; +TYLENOL PM EXTR1 TA1 PO; +XIGDUO5/1000 PO; +ZANTAC 150MG T150 MG PO; +ZOLOFT 100MG100 MG PO
[2019-04-10] MEDS ORDERED: ASPIRIN 32325 MG/TAB PO (13:03)
--- NOTE | 2019-04-10 15:30 | NUR ---
Received report from Eliane in Surgical. Reporting the following: patient had a RBKA; a full code; A&OX3; last BM was yesterday 04/09 and had two of them. Patient was on 1 Liter of oxygen yesterday, but has been doing fine with out it today. She is on a carb controlled diet. Dr. Mayo was her surgeon. She was continent today, but does were pull ups at times. She is a one assist pivot transfer to [facility]. She had one pain pill this morning (Pelham). She is a diabetic and gets blood sugar checks ACHS.
[2019-04-10 16:14] VITALS: BP 118/60; PULSE 90; TEMP 98.2
[2019-04-10] MEDS ORDERED: LEVEMIR100 U/ML SQ (16:46)
[2019-04-10] MEDS ORDERED: LEVAQUIN 750MG750 M1 PO (16:48)
[2019-04-10] MEDS ORDERED: MIRALAX PA17 GM/Dose PO (16:49)
[2019-04-10 18:00] VITALS: BP 118/60; PULSE 96; TEMP 98.2
[2019-04-10] MEDS ORDERED: MELATIN 3 MG-11 TAB PO (18:14)
[2019-04-10] MEDS ORDERED: NOVLOG SQ (18:16)
[2019-04-10] MEDS ORDERED: NORCO 325 MG-51 TAB PO (18:17)
[2019-04-10] MEDS ORDERED: COLACE 100100 MG/CAP PO (18:33)
[2019-04-10] MEDS ORDERED: MAALOX ADVANCE148 ML PO (18:36)
[2019-04-10] MEDS ORDERED: TYLENOL 325MG325 MG PO (18:37)
[2019-04-10] MEDS ORDERED: DULCOLAX S10 MG/SUPP RC (18:38)
[2019-04-10] MEDS ORDERED: BANOPHEN25 M1 PO (18:40)
[2019-04-10] MEDS ORDERED: PHILLIPS M400 MG/51 PO (18:42)
[2019-04-10] MEDS ORDERED: IPRATROPIUM BROM3 M1 IH ×2 (19:28→19:29)
--- NOTE | 2019-04-10 20:00 | NUR ---
PT RESTING IN BED. A&OX4. PLEASANT AND COOPERATIVE. RT STUMP ELEVATED ON PILLOWS. DRSG CDI. IMMOBILIZER INTACT. SEE MAR FOR PAIN MEDICATION GIVEN. ORIENTED TO IPR ROUTINE SCHEDULE. CONSENTS SIGNED. BED ALARM SET. CALL IGHT IN REACH.
[2019-04-11 05:00] VITALS: BP 102/63; PULSE 79; TEMP 97.7
--- NOTE | 2019-04-11 05:00 | NUR ---
MOD 1 ASSIST TO BSC. VOIDED XLG AMT SL HAZY YELLOW URINE. BACK TO BED. CALL LIGHT IN REACH.
--- NOTE | 2019-04-11 05:15 | NUR ---
DENIED NEED FOR PAIN MED AT THIS TIME.
--- NOTE | 2019-04-11 05:30 | NUR ---
ACCUCHECK 61/ ASYMPTYOMATIC. GAVE OJ. O2SAT 88% STARTED O2 1L NC.
--- NOTE | 2019-04-11 06:45 | NUR ---
ACCUCHECK 88.
--- NOTE | 2019-04-11 08:39 | NUR ---
Bedside report from JEAN PIERRE Palmer. Pt was asleep in bed, alarm on, awakened, yellow gown and gripper sock, donned fall wrist band, immobilizer to RLE, elevated on pillow, SCD to LLE. Pt was assisted by WORKERS COMPENSATION COORDINATOR to pivot to chair with walker & gait belt, alarm on, call lt in reach. Took pills whole with water, A&O, pleasantly cooperative. [place] prior to therapy. Pt's family to bring own meds in for DMII. On O2@1LPNC and RT notified.
--- NOTE | 2019-04-11 12:45 | NUR ---
Pt attended therapies, to for lunch, immobilizer in place. Brought oral care items to [facility], pt indep with this.
--- NOTE | 2019-04-11 15:12 | NUR ---
Pt bedresting, watching tv, immobilizer in place, assisted with GLORIA hose to LLE & SCD, gripper sock on. Bed alarm on, declined newspaper, provided diet sprite and diet jello. Call lt in reach.
[2019-04-11 16:40] VITALS: BP 138/73; PULSE 92; TEMP 98.2
--- NOTE | 2019-04-11 18:08 | NUR ---
Pt to recliner for supper with foot rest up, call lt in reach, turned on chair alarm, immobilizer in place. Enc IS after supper, given items for oral cares. Denies any needs.
--- NOTE | 2019-04-11 22:24 | NUR ---
PT TRANSFERRED FROM TO BED. SEE MAR FOR PAIN MED GIVEN. PT UPPER BODY STRENGTH WEAK. MOD 1 ASSIST WITH WALKER. PT COOERATIVE AND PLEASANT. RT STUMP ELEVATED ON PILLOWS, SPOT CHECK O2 SAT 88%. STARTED O2 2L NC. ENC USE IS. PT VERY COMPLIANT.CALL LIGHT IN REACH. BED ALARM SET.
[2019-04-12 05:53] VITALS: BP 113/64; PULSE 74; TEMP 97.9
--- NOTE | 2019-04-12 06:42 | NUR ---
PT UP IN RECLINER THIS AM. SPOT CHECK O2 SAT- 88%. COUGH DEEP BREATHS BRING BACK UP TO 94%. REPORTED TO ART Lynch RN THIS AM.
--- NOTE | 2019-04-12 07:10 | NUR ---
Bedside report from JEAN PIERRE Palmer. Pt to chair with foot rest up, yellow gown/gripper sock, immobilizer to RLE, GLORIA to LLE. Enc IS.
[2019-04-12 07:40] VITALS: PULSE 84
--- NOTE | 2019-04-12 10:28 | NUR ---
Per Dr. Bentley, do not give pt home diabetes meds of Rakan and Sidney.
[2019-04-12 12:26] VITALS: PULSE 84
--- NOTE | 2019-04-12 13:17 | NUR ---
Faxed ortho office questions to clarify orders for showering, dressing changes, appts and staple removal. Received "OK" fax receipt.
[2019-04-12 14:15] LABS: BASO # 0.1 (0.0-0.2); BASO % 0.7 % (0.0-2.0); EOS # 0.3 (0.0-0.7); EOS % 3.7 % (0-4.0); GRAN % 65.5 % (42.2-75.2); LYMPH # 1.6 (1.2-3.4); LYMPH % 20.9 % (20.0-51.0); MEAN CELL VOLUME 89 fl (80.0-100.0); MEAN CORPUSCULAR HGB CONC 30 g/dl (33.0-37.0); MEAN PLATELET VOLUME 8.4 fl (7.4-10.4); MONO # 0.6 (0.1-0.6); MONO % 7.4 % (1.7-9.3); PLATELET COUNT 332 K/mm3 (130-400)
[2019-04-12 14:29] LABS: ALBUMIN 3.8 gm/dL (3.5-5.0); BILIRUBIN,TOTAL 0.2 mg/dL (0.0-1.0); CALCIUM 9.1 mg/dL (8.4-10.2); CREATININE, serum 1.91 (0.52-1.25); MAGNESIUM 2.3 mg/dL (1.6-2.3); TOTAL PROTEIN 7.5 gm/dL (6.4-8.2)
[2019-04-12 14:34] LABS: POTASSIUM 5.8 mmol/L (3.4-5.0)
[2019-04-12 14:36] LABS: HEMATOCRIT 29.4 % (37.0-47.0); HEMOGLOBIN 8.7 g/dl (12.5-16.0); MEAN CORPUSCULAR HEMOGLOBIN 26 pg (27.0-31.0)
--- NOTE | 2019-04-12 14:58 | NUR ---
Returned pt's home meds: xigduo, 2 insulin pens, and box of trulicity for her male friend to return home. Pt signed pharm form, placed on chart
[2019-04-12 15:26] LABS: ANISOCYTOSIS 1+; BAND 2 % (0-10); EOSINOPHIL 2 % (0-4); LYMPHOCYTE 24 % (20.0-51.0); NEUTROPHILS 64 % (42.0-75.2); PLATELET ESTIMATE NORMAL (NORMAL)
[2019-04-12 15:27] LABS: HYPOCHROMIA 2+
[2019-04-12 16:41] VITALS: BP 141/69; PULSE 91; TEMP 98.2
--- NOTE | 2019-04-12 16:42 | NUR ---
Pt had visitors this afternoon to watch the [employer] game on tv. Sitting bedside with immobilizer in place, requests tylenol with supper. A&O, pleasant. Yellow gown/gripper in place.
--- NOTE | 2019-04-13 02:00 | NUR ---
PT SITTING ON EDGE OF BED EATING HS SNACK. PT VERY APPRECIATIVE OF ALL CARES GIVEN THROUGH OUT HER STAY. PAIN BETTER TONIGHT. DENIES NEED FOR PAIN MED. NS AT 100CC/HR TO PICC LINE. KEEP STUMP ELEVATED. OCCLUSIVE DRSG CDI. IMMOBILIZER IN PLACE. CALL LIGHT IN REACH.
--- NOTE | 2019-04-13 03:30 | NUR ---
Patient ambulated to [facility] with assist x1, walker, and gait belt. Tolerated well. States pain is 3/10 in right stump. Prn tylenol given per request. Denies further needs at this time. Will continue to monitor.
--- NOTE | 2019-04-13 04:27 | NUR ---
PT SLEEPING. NO RESP DISTRESS.
--- NOTE | 2019-04-13 04:30 | NUR ---
REPORTED BLOODY NOSE- SMALL AMT NOTED. VSS AT THIS TIME. PT REQUEST ACCUCHECK TO BE DONE- WNL.
[2019-04-13 04:32] VITALS: BP 127/59; PULSE 90; TEMP 98.1
[2019-04-13 08:18] LABS: CALCIUM 8.6 mg/dL (8.4-10.2); CREATININE, serum 1.79 (0.52-1.25); POTASSIUM 4.9 mmol/L (3.4-5.0)
--- NOTE | 2019-04-13 14:36 | NUR ---
EDGARD met with the patient to discuss weekend care and family meeting. The patient reports she has received great care by all staff. The family meeting is set for 04/14 at 1330. The patient has a friend Daniel that may be present or available via telephone. EDGARD informed INOCENTE Nash Director regarding the meeting. inpatient services rn will continue to follow.
[2019-04-13 16:42] VITALS: BP 150/79; PULSE 104; TEMP 97.9
--- NOTE | 2019-04-13 20:19 | NUR ---
Shift summary: Report from JEAN PIERRE Palmer. Pt A&O, pleasantly cooperative, takes pills whole with thin liquids, see BGDr. stopped scheduled insulin TIDF. Recheck labs. PICC w/o complications. Did not receive call back from ortho office to clarify orders to BKA. RLE in immobilizer. Cando prior to therapy, requests tylenol from darius RN for HS. Kevin RA, uses IS appropriately. Good intake/output. GLORIA to LLE, SCD in bed. Min assist pivot to BSC w/ gait belt, walker, WEALTH MANAGEMENT CONSULTANT, continent. Bedside report to JEAN PIERRE Salomon.
--- NOTE | 2019-04-13 21:00 | NUR ---
Shift assessment complete. Patient in bed, awake. BG 119. Patient states she does not take levemir at home. Given hypoglycemia this morning, Katie DERRICK OPERATOR notified and levemir dose decreased to 20 units hs x1. Patient agreeable to plan. States pain 2/10 in right stump, prn tylenol given per pt request. Denies further needs at this time. Will continue to monitor.
[2019-04-14 03:35] VITALS: BP 127/70; PULSE 86; TEMP 97.5
--- NOTE | 2019-04-14 09:45 | NUR ---
PICC intact right upper arm. With sterile technique right upper arm PICC dressing change done with insertion site cleansed with ChloraPrep 1, chlorhexidine impregnated disc applied, skin prep, StatLock, and Tegaderm applied. No signs or symptoms of IV complications noted. No concerns voiced. Arm wrapped with Vik to protect catheter.
--- NOTE | 2019-04-14 10:00 | NUR ---
Patient attending all therapies today. Continues on IV fluids per orders of Dr. Bentley. Patient has some fluid retention, she is having her I&Os monitored and daily weights.
--- NOTE | 2019-04-14 10:03 | NUR ---
Patient was a one person pivot transfer from bed to BSC this morning. She was then a one assist pivot transfer from toilet to recliner. Patient ate all her breakfast and was independent with this task. Patient repoted some pain to right stump this AM and was given prn pain meds with good effect. Will continue to monitor.
[2019-04-14 15:49] VITALS: BP 139/72; PULSE 96; TEMP 98
--- NOTE | 2019-04-14 15:49 | NUR ---
Patient resting in recliner at this time watching TV. Patient reports 2/10 pain and given prn tylenol with good effect. Tolerating diet well. Patient requesting a glucerna daily. Attempted to get ahold of dietary multiple times today, but was unable to reach them. This above was communicated to the kitchen staff.
--- NOTE | 2019-04-14 16:03 | NUR ---
Receiving Supervisor attended Family Meeting with patient and patient's friend, Daniel. [facility] Director, Charity opened the meeting and explained purpose. PT/OT were in attendance and reviewed patient goals and progress. Following meeting, SW met with patient to review team conference notes. SW reviewed recommendation for Home Health and provided patient with Medicare.gov list of Home Health agencies that serve her area. Patient states she will review the list. SW to follow up on patient choice. Patient lives at [facility] in [place] which is a part of [place] [facility]. Patient reports she wants to explore moving into a handicap accessible apartment. SW assisted patient in contacting Tato Massey, [facility] Director who advised there is an apartment available, however documentation of medical necessity would be required. SW to continue to follow to ensure safe discharge.
[2019-04-14 16:09] VITALS: BP 135/74; PULSE 96; TEMP 97.6
--- NOTE | 2019-04-14 22:25 | NUR ---
PT CHEERFUL AND TALKATIVE. TAKES TYLENOL FOR RLE PAIN. TRANSFERS TO BSC W/ SBA. VOIDING W. DIFFICULTY. RT STUMP HAS DRSG AND IMMOBILIZER IN PLACE. READY FOR BED. CALL LIGHT IN REACH. BED ALARM SET.
[2019-04-15 06:20] VITALS: BP 131/73; PULSE 84; TEMP 97.4
[2019-04-15 06:48] LABS: CALCIUM 8.7 mg/dL (8.4-10.2); CREATININE, serum 1.52 (0.52-1.25); MAGNESIUM 2.3 mg/dL (1.6-2.3); POTASSIUM 4.6 mmol/L (3.4-5.0)
--- NOTE | 2019-04-15 06:50 | NUR ---
PT UP [place] [facility] VOIDED AND HAD BM SMALL LOOSE. PT STOOD FROM [facility], IMMOBILIZER AND DRESSING SLIPPED OFF. INCISION CLEAN AND DRY. BNEW EHSANX APPLIED WILLIAM INTACT. PT ABLE TO LOOK AT STUMP WITHOUT DIFFICULTY. TYLENOL GIVEN FOR DISCOMFORT. SITTING ON SIDE OF BED.
--- NOTE | 2019-04-15 09:51 | NUR ---
Patient attending all therapies this morning. Ate 100% of breakfast this AM. Denied questions this AM.
[2019-04-15 15:06] VITALS: BP 138/77; PULSE 83; TEMP 98; TEMP 980
--- NOTE | 2019-04-15 19:31 | NUR ---
Patient attended all therapies today. Dr. Bentley saw patient see new orders for decrease in Levemier to 16 Units at . Patient requested Tylenol this morning for right stump pain, but did not require any pain meds the rest of the day. Patient started out using the bed side commode this morning, but was able to walk herself to the bathroom this evening two times using her walker. She uses call light appropriatly, has been tolerating diet well and was in a pleasent mood this shift. Some friends stopped by to see her today and had pictures of a wheelchair. This nurse received permission from Charity to send her those wheelchair pictures to see if this wheelchair would work for the patient. Charity will be communicating her findings with patient later this week. Reported off to night nurse.
--- NOTE | 2019-04-15 20:00 | NUR ---
PT RESTING IN BED. REPOSITIONING SELF FOR COMFORT. TYLENOL FOR DISCOMFOT PHANTOM PAIN. OCCLUSIVE DRSG CDI WITH IMMOBILIZER. VERY INVOLVED IN SELF CARE AND HAS GGOOD MOTIVATION TO IMPROVE.
[2019-04-16 03:27] VITALS: BP 124/66; PULSE 84; TEMP 97.9
--- NOTE | 2019-04-16 06:44 | NUR ---
PT ASYMPTOMATIC WITH HYPOGLYCEMIA READING OF 64 NOW. ANOTHER JUICE GIVEN TO PT.
--- NOTE | 2019-04-16 14:34 | NUR ---
EDGARD met with the patient to revisit discharge plan, discuss care and letter to the [facility] for [facility] unit. The patient is very pleased with the care she has received thus far. The patient discharge date is set for 04/22/2019. The patient chose [facility]. EDGARD faxed referral. Awaiting response. EDGARD contacted Tato Massey [facility] Director for letter information. Mr. Massey's email is [email or web address] INOCENTE Nash Director will assist with letter for the patient and it will be emailed when completed. director construction services will continue to follow to ensure a safe discharge.
[2019-04-16 18:23] VITALS: BP 128/73; PULSE 95; TEMP 97.7
--- NOTE | 2019-04-16 19:30 | NUR ---
PATIENT UP IN CHAIR DURING SHIFT CHANGE REPORT FROM DAY SHIFT NURSE. CHAIR ALARM ENGAGED. DENIES ANY CONCERNS OR NEEDS AT THIS TIME. HAS VISITORS PRESENT X2 CURRENTLY.
--- NOTE | 2019-04-17 01:33 | NUR ---
PATIENT RESTING WITH EYES CLOSED, DOES NOT AWAKEN WHEN ROOM ENTERED, BREATHING EVEN AND NONLABORED. BED ALARM ENGAGED.
[2019-04-17 06:23] VITALS: BP 124/65; PULSE 80; TEMP 97.9
--- NOTE | 2019-04-17 06:50 | NUR ---
PATIENT RESTING IN BED DURING SHIFT CHANGE REPORT GIVEN TO DAY SHIFT NURSE. NO OTHER NEEDS REPORTED PRIOR TO REPORT GIVEN.
--- NOTE | 2019-04-17 11:35 | NUR ---
Staple removal: left two evin to medial aspect of incision in area of curved incision and shelfing. Applied steris throughout and covered with telfa, kerlix, and leonora. Donned immobilizer, pt to therapy in wheelchair.
--- NOTE | 2019-04-17 13:00 | NUR ---
PICC intact right upper arm with sterile dressing change done with insertion site cleansed with chloraprep x 1, chlorhexidine impregnated disk applied, ski prep, stat lock, and tegaderm applied. no signs or symptoms of IV complications noted. no concerns voiced. re-wrapped with leonora to protect catheter.
--- NOTE | 2019-04-17 14:01 | NUR ---
Pt A&O, very pleasant, cooperative, takes pills whole with thin liquids. Immobilizer to R BKA with dressing intact. Pt has minimal pain, ilene Tylenol PRN. Helped schedule F/U appts and informed pt of appts. Pt reports wearing SCD to LLE, has thigh high GLORIA to LLE and non-slip sole. Edu pt about starting pony roll finisher after ortho appt. Questions answered.
--- NOTE | 2019-04-17 15:29 | NUR ---
SW emailed the letter that INOCENTE Nash Director provided for Tato Massey at the patient's apartment complex.
[2019-04-17 15:36] VITALS: BP 123/62; PULSE 94; TEMP 98
--- NOTE | 2019-04-17 19:07 | NUR ---
Bedside report to JEAN PIERRE Knowles. Pt in bed with alarm on, call lt in reach, immobilizer in place. SCD to LLE
--- NOTE | 2019-04-17 20:00 | NUR ---
RESTING IN BED DURING SHIFT CHANGE REPORT FROM DAY SHIFT NURSE, BED ALARM ENGAGED. NO OTHER NEEDS REPORTED.
--- NOTE | 2019-04-17 23:28 | NUR ---
RESTING WITH EYES CLOSED, BREATHING NONLABORED AND EVEN. BED ALARM ENGAGED. DOES NOT AWAKEN WHEN ROOM ENTERED.
--- NOTE | 2019-04-18 02:29 | NUR ---
RESTING WITH EYES CLOSED, BREATHING NONLABORED AND EVEN. BED ALARM ENGAGED.
[2019-04-18 05:26] VITALS: BP 132/69; PULSE 83; TEMP 97.7
--- NOTE | 2019-04-18 07:16 | NUR ---
PATIENT RESTING IN BED DURING SHIFT CHANGE REPORT GIVEN TO DAY SHIFT NURSE. BED ALARM ENGAGED
--- NOTE | 2019-04-18 10:04 | NUR ---
Patient was a set up for upper and lower dressing this morning. She was able to put her sock on, shoe on, do her own hygiene. She was observation only going from recliner to bathroom. Patient denies pain this morning. She ate 100% of her breakfast. She is currently with group therapy in the gym.
--- NOTE | 2019-04-18 10:28 | NUR ---
Patient was made independent in her room with a walker or wheelchair. Okay for her to go in hallway, but with wheelchair only. Patient is aware of the above. Will continue to monitor.
--- NOTE | 2019-04-18 13:44 | NUR ---
Patient sleeping in recliner at this time. She is independent in her room with a walker/wheelchair per therapy.
--- NOTE | 2019-04-18 14:24 | NUR ---
Patient tranferred herself to the bathroom using walker. She was able to open and close the door as well as do all toileting tasks independently. Will continue to momitor.
[2019-04-18 16:21] VITALS: BP 127/70; PULSE 93; TEMP 98.5
--- NOTE | 2019-04-18 20:00 | NUR ---
UP IN W/C IN [place] DURING SHIFT CHANGE REPORT FROM DAY SHIFT NURSE. UP MOD INDEPENDENT IN ROOM ONLY WITH WW WITH NO PROBLEM.
--- NOTE | 2019-04-19 01:02 | NUR ---
UP IN W/C, UNABLE TO GO BACK TO SLEEP AFTER UP TO BATHROOM INDEPENDENTLY WITH WW. NO OTHER NEEDS REPORTED.
--- NOTE | 2019-04-19 02:07 | NUR ---
RESTING WITH EYES CLOSED, BREATHING NONLABORED AND EVEN. DOES NOT AWAKEN WHEN ROOM ENTERED.
--- NOTE | 2019-04-19 04:23 | NUR ---
RESTING WITH EYES CLOSED IN BED, BREATHING NONLABORED AND EVEN. DOES NOT AWAKEN WHEN ROOM ENTERED.
[2019-04-19 05:07] VITALS: BP 133/70; PULSE 80; TEMP 97.8
--- NOTE | 2019-04-19 09:14 | NUR ---
Patient resting in recliner with son feeding her at this time. Patient was a one assist with walking to the bathroom using the 4 wheeled rolling walker. Patient in pain with movement and given prn [place] with some effect. Patient does not like to take two [place] during the day since it makes her drowsy. Will continue to monitor. Patient was a set up with her meal first thing this morning. She did eat a little by herself until family arrived to help feed her. Patient denied any questions this morning.
--- NOTE | 2019-04-19 10:09 | NUR ---
Patient sleeping in bed at this time.
--- NOTE | 2019-04-19 10:39 | NUR ---
Discussed lunch menu with patient. She agreed to eat what will be served.
--- NOTE | 2019-04-19 13:33 | NUR ---
Patient was independent on her grooming this afternoon. She asked staff to call down to the kitchen to cancel her glucerna this afternoon. She said that she feels like it has been increasing her blood sugars so she wanted to just try a cracker and some peanut butter instead today. Suggested that patient speak with dietary on Saturday to discuss the glucerna. Will communicate this to night nurse.
[2019-04-19 16:44] VITALS: BP 147/71; PULSE 96; TEMP 97.7
--- NOTE | 2019-04-19 20:00 | NUR ---
PATIENT UP INDEP IN ROOM W/WALKER DURING SHIFT CHANGE REPORT FROM DAY SHIFT NURSE.
--- NOTE | 2019-04-20 00:44 | NUR ---
RESTING IN BED WITH EYES CLOSED, BREATHING NONLABORED/EVEN. DOES NOT AWAKEN WHEN ROOM ENTERED.
--- NOTE | 2019-04-20 03:00 | NUR ---
RESTING WITH EYES CLOSED, BREATHING EVEN AND NONLABORED. DOES NOT AWAKEN WHEN ROOM ENTERED.
--- NOTE | 2019-04-20 05:37 | NUR ---
INITIAL FSBS TESTING 309 RESULT, OBSERVED BLOOD SPECIMEN MORE SEROUS IN APPEARANCE, REPEATED FSBS TESTING WITH DARKER COLOR APPEARANCE WITH 80 RESULT. 120 ML ORANGE JUICE GIVEN PER PATIENT REQUEST.
[2019-04-20 05:51] VITALS: BP 124/62; PULSE 73; TEMP 97.7
--- NOTE | 2019-04-20 07:30 | NUR ---
PATIENT SITTING AT SIDE OF BED EATING BREAKFAST DURING SHIFT CHANGE REPORT GIVEN TO DAY SHIFT NURSE.
[2019-04-20 07:34] LABS: BASO # 0.1 (0.0-0.2); BASO % 0.9 % (0.0-2.0); EOS # 0.5 (0.0-0.7); EOS % 9.3 % (0-4.0); GRAN # 3.1 (1.4-6.5); GRAN % 55.6 % (42.2-75.2); LYMPH # 1.4 (1.2-3.4); LYMPH % 25.4 % (20.0-51.0); MEAN CELL VOLUME 92 fl (80.0-100.0); MEAN CORPUSCULAR HGB CONC 29 g/dl (33.0-37.0); MONO # 0.5 (0.1-0.6); MONO % 8.3 % (1.7-9.3); PLATELET COUNT 260 K/mm3 (130-400); RED BLOOD COUNT 3.28 M/mm3 (4.10-5.30); REDCELL DISTRIBUTION WIDTH-CV 15.9 % (11.5-14.5)
[2019-04-20 07:38] LABS: CALCIUM 9.2 mg/dL (8.4-10.2); CREATININE, serum 1.31 (0.52-1.25); HEMOGLOBIN 8.7 g/dl (12.5-16.0); MAGNESIUM 1.9 mg/dL (1.6-2.3); MEAN CORPUSCULAR HEMOGLOBIN 27 pg (27.0-31.0); POTASSIUM 4.6 mmol/L (3.4-5.0)
--- NOTE | 2019-04-20 14:26 | NUR ---
Bedside report from JEAN PIERRE Knowles. Pt is mod I in rm w/ walker or wheelchair, she is also mod I in wise with wheelchair only. Pt A&O, pleasantly cooperative, immobilizer in place. Pt donned GLORIA hose to LLE with shoe later. Tylenol for pain. Pt not showing anxiety today. Takes pills whole with water.
--- NOTE | 2019-04-20 14:54 | NUR ---
EDGARD met with the patient to introduce oneself and review discharge plan for Saturday. The patient states that she is doing well and eager to hear back from Tato Massey about the handicap accessible apartment. EDGARD attempted to contact Tato (ph#[phone] ext.[phone]). EDGARD left him a voicemail. EDGARD also followed up with the patient about the teams recommendation of a wheelchair with elevated legs and a FWW. The patient states that she would prefer to order a wheelchair through insurance and just borrow [facility]. EDGARD presented and explained the Patient Choice Form for DME. The patient chose [facility]. Patient Choice Form signed by the patient and she was provided a copy. EDGARD contacted and faxed the patient's information to Ama at [facility]. EDGARD still awaiting the signed walker script from the doctor. EDGARD notified Ama of this. Lore, at [facility], also reports that they are able to accept the patient for services. EDGARD to inform the patient and will continue to follow.
[2019-04-20 16:11] VITALS: BP 123/67; PULSE 78; TEMP 97.9
--- NOTE | 2019-04-20 16:27 | NUR ---
Tato Fowler, with [facility], contacted SW back to inform that they will not have a handicap accessible apartment available for the patient. He states that he believes that one will be coming available by the end of June, if the patient were to still need it. He states that anything the patient needs done in their apartment, that they can install. SW updated the patient. The patient appeared upset and discouraged. SW provided support. The patient states that she would need a grab bar to get into the shower, a grab bar for the toliet, and a detachable shower head. EDGARD contacted and notified Tato Janeth of this and informed him of the patient's discharge date. Tato reports that they can install that equipment tomorrow. He states that if she needs anything else, once in the home, then they can help install it too. SW to update the patient and will continue to follow.
--- NOTE | 2019-04-20 17:07 | NUR ---
Removed last two evin from R BKA, pt ilene well, applied telfa, kerlix, leonora, immobilizer as ordered.
--- NOTE | 2019-04-20 19:10 | NUR ---
Bedside report to JEAN PIERRE Mari. Pt ilene mod I in room, in recliner with walker in reach, immobilizer in place, GLORIA and shoe to LLE.
--- NOTE | 2019-04-20 20:45 | NUR ---
HS meds along with norco and melatonin reviewed and given. Patient pleasant, laughs and jokes with visitors in room and nurse. Currently sits up in wheelchair and is mod I in room. Took snack of pudding prior to accu check so blood sugar 239. Immobiler on RLE.
--- NOTE | 2019-04-20 21:49 | NUR ---
Patient rests back in bed. Reports pain med helped and hasn't had any further phantom pain at this time. SCD applied LLE.
--- NOTE | 2019-04-20 23:09 | NUR ---
Rests quietly in bed on left side. Respirations with ease.
--- NOTE | 2019-04-21 01:50 | NUR ---
Patient rests with eyes closed. Respirations with ease.
[2019-04-21 03:03] VITALS: BP 141/77; PULSE 76; TEMP 97.4
--- NOTE | 2019-04-21 05:38 | NUR ---
Patient denies pain or need for pain med. "Can I go back to sleep now". Accu check 71 but declines snack.
[2019-04-21 16:16] VITALS: BP 141/72; PULSE 81; TEMP 98.4
--- NOTE | 2019-04-21 17:21 | NUR ---
EDGARD met with the patient to present and discuss the IPR Team Conference Note. EDGARD reviewed the patient's progress with therapy and the plan for discharge tomorrow, 04/22, with home health services for PT/OT through [facility]. The patient is in agreeance to this plan. She states that her friend, Daniel, will transport her home. She was interested in finding out how much a FWW at [facility] was to purchase and rent. She states that Daniel was planning on buying her a FWW. EDGARD contacted [facility] and inquired their prices. $89.99 to buy and $5 a week to rent. EDGARD informed the patient of their prices. She states that she will update Daniel. EDGARD also presented and explained the IM form to the patient. The patient verbalized understanding, signed, and she was provided a copy. EDGARD also received a phone call from Tato Massey, with [facility]. Tato states that they would prefer to install the grab bars tomorrow, when the patient gets home. That way they can get them installed at the right heights for her. He also provided EDGARD with his work cell phone ([phone]) for the patient to call when he gets home. EDGARD informed the patient of this. The patient appeared frustrated. She states that she does not need his work cell and will know who to contact. EDGARD to continue to follow.
--- NOTE | 2019-04-21 18:41 | NUR ---
Patient has done well throughout the day. Minimal needs. Independent in room. Has requested tylenol for phantom pain throughout the day, medications given per orders. Denies further needs at this time. Will report off to film processing shift supervisor.
--- NOTE | 2019-04-21 22:00 | NUR ---
Patients dressing to RBKA fell off and redressed with telfa over mid incision, followed by kerlix and leonora. Incision/RBKA without redness,increased warmth or swelling. Edges well approximated with steri-strips and just scant dried drainage to outer incision. No active drainage. HS meds along with insulin,sleep aid and norco all reviewed and given. Patient pleasant and alert and oriented x4. Snack of sugar free chocolate pudding and diet sprite given per request. Patient mod I in room and is resting back in bed. Nurse reapplied Immobilizer to RBKA and SCD to LLE. RBKA elevated on pillow.
[2019-04-22 04:19] VITALS: BP 120/68; PULSE 67; TEMP 97.6
--- NOTE | 2019-04-22 05:33 | NUR ---
Patient rests with eyes closed. Respirations with ease.
--- NOTE | 2019-04-22 09:01 | NUR ---
Report from JEAN PIERRE Mari, pt asleep in bed, mod i in room with walker and wheelchair. Reviewed plan to discharge home today. Pt took pills whole with thin liquids, immobilizer in place.
[2019-04-22] MEDS ORDERED: NORCO 325 MG-51 TAB PO (11:18)
[2019-04-22] MEDS ORDERED: PROAIR HFA0.09 MG/AC IH (11:19)
--- NOTE | 2019-04-22 13:45 | NUR ---
The patient is to discharge today, 04/22 home with home health with [facility]. [place] [facility] delivered the patient's wheelchair and the patient's friend provided a walker. SW faxed discharge orders to [facility] [place][Note 2]. The patient will be transported by a friend. There are no additional needs at this time.
--- NOTE | 2019-04-22 15:04 | NUR ---
Printed pt health summary, discharge summary, and home med list and reviewed with pt. Printed prescription for norco given. Stressed importance of f/u appts and taking meds as ordered. Reviewed meds and changes to home regime. Pt states her pharmacy called with med ready. Belonings gathered by pt and staff, including glasses, immobilizer in place, cell phone, electrical journeyman, spirometer, wheelchair. Pt transported via wheelchair by XIMENA Messina for ride home with friend. Pt denied any questions. Provided directions to Ortho office.
== END 2019-04-22 15:00 | disposition home health service (06) | DRG 947 ==
PROVIDERS: ADMIT Internal Medicine
DX: R53.81 Other malaise (principal); J96.01 Acute respiratory failure with hypoxia; J18.9 Pneumonia, unspecified organism; A41.9 Sepsis, unspecified organism; M86.9 Osteomyelitis, unspecified; I42.9 Cardiomyopathy, unspecified; N17.9 Acute kidney failure, unspecified; L03.115 Cellulitis of right lower limb; E11.69 Type 2 diabetes mellitus with other specified complication; E11.621 Type 2 diabetes mellitus with foot ulcer; L97.519 Non-pressure chronic ulcer of other part of right foot with unspecified severity; E11.42 Type 2 diabetes mellitus with diabetic polyneuropathy; E11.65 Type 2 diabetes mellitus with hyperglycemia; I11.0 Hypertensive heart disease with heart failure; E87.5 Hyperkalemia; Y95 Nosocomial condition; D64.9 Anemia, unspecified; R31.0 Gross hematuria; I95.9 Hypotension, unspecified; I50.9 Heart failure, unspecified; E78.5 Hyperlipidemia, unspecified; M79.7 Fibromyalgia; F15.10 Other stimulant abuse, uncomplicated; Z79.4 Long term (current) use of insulin; Z79.82 Long term (current) use of aspirin; Z95.810 Presence of automatic (implantable) cardiac defibrillator; Z87.891 Personal history of nicotine dependence; Z89.511 Acquired absence of right leg below knee; Z88.8 Allergy status to other drugs, medicaments and biological substances
CPT/HCPCS: 99222-AI; 99232-AI; 99239; J1815; J7030

== ENCOUNTER 2021-05-17 07:41 | Day surgery (SDC) | payer MEDICARE, MEDICAID ==
[~2021-05-17] VITALS: Ht 172.7 cm; Wt 69.1 kg
[2021-05-17] VITALS (7 sets, daily range): BP systolic 120–132; BP diastolic 70–78; PULSE 78–86; TEMP 97.9
[~2021-05-17 07:41] MED LIST changes: +ASPIRIN 32325 MG/TAB PO; +ASPIRIN E.C. 8181 MG PO; +BANOPHEN25 M1 PO; +COLACE 100100 MG/CAP PO; -COREG 3.123.125 MG/T PO; +COREG 6.256.25 MG/TA PO; +DULCOLAX S10 MG/SUPP RC; +ELIQUIS 5MG PO; +IPRATROPIUM BROM3 M1 IH; +LASIX 20MG TABL20 MG PO; +LEVAQUIN 750MG750 M1 PO; +LEVEMIR FLEX100 U/ML SQ; +LEVEMIR100 U/ML SQ; +MAALOX ADVANCE148 ML PO; +MELATIN 3 MG-11 TAB PO; +MIRALAX PA17 GM/Dose PO; +NEURONTIN300 MG/CAP PO; -NEURONTIN600 MG/TAB PO; +NORCO 325 MG-51 TAB PO; +NOVLOG SQ; +PHILLIPS M400 MG/51 PO; +PROAIR HFA0.09 MG/AC IH; +TRULICITY3 MG/0.5 M SQ; +TYLENOL 500MG500 MG PO
[2021-05-17 08:48] LABS: BASO # 0.1 K/mm3 (0.0-0.2); BASO % 0.9 % (0.0-2.0); EOS # 0.2 K/mm3 (0.0-0.7); EOS % 2.2 % (0.0-4.0); GRAN # 6.6 K/mm3 (1.4-6.5); HEMOGLOBIN 10.8 g/dl (12.5-16.0); LYMPH # 1.3 K/mm3 (1.2-3.4); LYMPH % 15.2 % (20.0-51.0); MEAN CELL VOLUME 85 fl (80.0-100.0); MEAN CORPUSCULAR HEMOGLOBIN 26 pg (27-31); MEAN CORPUSCULAR HGB CONC 30 g/dl (33.0-37.0); MEAN PLATELET VOLUME 9.7 fl (7.4-10.4); MONO # 0.5 K/mm3 (0.1-0.6); MONO % 5.2 % (1.7-9.3); PLATELET COUNT 321 K/mm3 (130-400); RED BLOOD COUNT 4.19 M/mm3 (4.10-5.30); REDCELL DISTRIBUTION WIDTH-CV 16.6 % (11.5-14.5)
[2021-05-17 08:51] LABS: HEMATOCRIT 35.5 % (37.0-47.0)
[2021-05-17 08:58] LABS: PROTHROMBIN TIME 11.6 SECONDS (9.7-12.8)
[2021-05-17 09:06] LABS: CALCIUM 8.7 mg/dL (8.4-10.2); CREATININE, serum 1.22 mg/dL (0.57-1.11); POTASSIUM 3.7 mmol/L (3.5-4.5)
[2021-05-17] MEDS ORDERED: CEPHALEXIN500 M1 PO (13:17)
--- NOTE | 2021-05-17 15:00 | NUR ---
INT discontinued intact. Discharge instructions given. Transferred to private car by [facility]
== END 2021-05-17 15:00 | disposition home or self-care (01) ==
LOC: COL.CAR 07:41
PROVIDERS: Internal Medicine Cardiovascular Disease
DX: I42.8 Other cardiomyopathies (principal); I11.0 Hypertensive heart disease with heart failure; I50.9 Heart failure, unspecified; E11.40 Type 2 diabetes mellitus with diabetic neuropathy, unspecified; R60.9 Edema, unspecified; T50.1X6A Underdosing of loop [high-ceiling] diuretics, initial encounter; Z89.511 Acquired absence of right leg below knee; Z79.899 Other long term (current) drug therapy; Z79.84 Long term (current) use of oral hypoglycemic drugs; Z79.4 Long term (current) use of insulin; Z79.82 Long term (current) use of aspirin; Z87.891 Personal history of nicotine dependence
CPT/HCPCS: J0690; J2250; J3010; J7030